=== PATIENT | female | born 1975 | race Caucasian/White ===

== ENCOUNTER 2018-09-21 02:57 | Emergency (ER) | payer MEDICAID ==
[2018-09-21] VITALS (7 sets, daily range): BP systolic 107–126; BP diastolic 60–80
[~2018-09-21] VITALS: Ht 162.6 cm; Wt 65.8 kg
[~2018-09-21 02:57] MED LIST: REMERON30 MG ORAL
--- NOTE | 2018-09-21 02:58 | NUR ---
ED Nurse Note: Patient brought in by ALICIA via better. . Per EMT patient was trying to get back into the place she was staying at but the owners wouldnt let her in and 911 was called. Patient's appearance is disheveled. patient is alert x3. VS HR 100, BP118/80 ,Sp02 95 RA, RR 20. Bed is in lowest position. Call light is within easy reach while in bed. Addendum: 09/21/18 at 0356 by JAZMINE ED Nurse Note: Patient brought in by ALICIA via [facility]. . Per EMT patient was trying to get back into the place she was staying at but the owners wouldnt let her in and 911 was called. Patient's appearance is disheveled. patient is alert x3. VS HR 100, BP118/80 ,Sp02 95 RA, RR 20. Bed is in lowest position. belonging was placed in locker 3.
--- NOTE | 2018-09-21 03:05 | Emergency Room Report ---
History of Present Illness General Chief Complaint: Behavioral Complaint Source: Patient Present Illness HPI This is a 43-year-old female with unknown psychiatric or past medical history. She presents with behavioral complaint. She was staying with a friend last 2 days. Her friend had to go to work and asked her to leave but she refused. She then started acting abnormally. 911 was called. On arrival Per EMS she was laying on the ground flailing about. She is not acting normally. They brought her here for evaluation. Unknown alcohol or drug abuse. Patient is a poor historian. Patient has a bottle of Remeron 30 mg with her. She filled it on September 12, 2018 at the [facility]. She had 30 tablets filled. Now there is only 10 left. It is unknown if she overdose on this. Patient was placed on a 5150 by police. Allergies: Coded Allergies: No Known Allergies (Unverified , 09/21/18) Patient History Past Medical History: see triage record, old chart reviewed Past Surgical History: unable to obtain Family History: unable to obtain Social History: single, unable to obtain Last Menstrual Period: na Now: No Immunizations: other Reviewed Nursing Documentation: PMH: Agreed; PSxH: Agreed Nursing Documentation-PMH History Of Psychiatric Problem: Yes Review of Systems ENT: Denies: sore throat Cardiovascular: Denies: chest pain, palpitations Gastrointestinal/Abdominal: Denies: nausea, vomiting, diarrhea Musculoskeletal: Denies: back problems Skin: Denies: rash Neurological: Denies: JANSEN, seizures All Other Systems: negative except mentioned in HPI Physical Exam Vital Signs Date Time Temp Pulse Resp B/P (MAP) Pulse Ox O2 Delivery O2 Flow Rate FiO2 09/21/18 02:47 98.4 125 24 175/125 (142) 98 Room Air vitals with hyper tension and tachycardia Sp02 EP Interpretation: reviewed, normal General Appearance: alert/responsive, no apparent distress, non-toxic Head: normocephalic, atraumatic Eyes: PERRL, EOMI ENT: oropharynx normal Neck: supple/symm/no masses Respiratory: effort normal, no rhonchi, no wheezing Cardiovascular: no murmur, gallop, rub Gastrointestinal: non-tender, no mass, non-distended, no rebound/guarding, normal bowel sounds Neurologic: oriented x3, sensory intact, motor strength/tone normal Skin: no rash, normal palpation Medical Decision Making Diagnostic Impression: Primary Impression: Acute psychosis Additional Impressions: Methamphetamine abuse Behavioral disorder Hypokalemia ER Course Patient presents with acute psychosis and behavior disorder. Most likely drug- induced. Questionable overdose with Remeron. Vitals been stable and heart rate normal. Potassium is low and been replaced. Will repeat. If normalized, she will be medically clear. She is currently on a 5150. EKG Diagnostic Results Rate: normal Rhythm: NSR ST Segments: no acute changes Rhythm Strip Diag. Results EP Interpretation: yes Rate: 89 Rhythm: NSR, no PVC's, no ectopy Last Vital Signs Date Time Temp Pulse Resp B/P (MAP) Pulse Ox O2 Delivery O2 Flow Rate FiO2 09/21/18 02:47 98.4 125 24 175/125 (142) 98 Room Air Status: improved Disposition: D/C TO LAW ENFORCEMENT IN [facility] Condition: Improved Jason Shaw MD Sep 21, 2018 03:05
[2018-09-21] MEDS ORDERED: Haloperidol 5mg/ml Inj IM ONE (03:15)
[2018-09-21 03:36] LABS: APPEARANCE,URINE SLIGHTLY CLOUDY; BILIRUBIN, URINE 1+ (NEGATIVE); GLUCOSE, URINE (UA) NEGATIVE (NEGATIVE); KETONES,URINE 4+ (NEGATIVE); LEUKOCYTE ESTERASE ,URINE 1+ (NEGATIVE); NITRITE,URINE NEGATIVE (NEGATIVE); PH,URINE 6 (4.5-8.0); PROTEIN,URINE 2+ (NEGATIVE); UROBILINOGEN,URINE 4 MG/DL (0.0-1.0)
[2018-09-21 03:47] LABS: ANION GAP 16 mmol/L (5-15); BLOOD UREA NITROGEN 29 mg/dL (7-18); CALCIUM 9.7 MG/DL (8.5-10.1); CARBON DIOXIDE 21 MMOL/L (21-32); CHLORIDE 104 MMOL/L (98-107); CREATININE 1.3 MG/DL (0.55-1.30); POTASSIUM 2.9 MMOL/L (3.5-5.1); SODIUM 141 MMOL/L (136-145)
--- NOTE | 2018-09-21 03:47 | NUR ---
ED Nurse Note: Pt currently in bed in semi salcido position resting. VSS. appears to be sleeping
[2018-09-21 03:51] LABS: COLOR,URINE YELLOW
[2018-09-21 03:52] LABS: BASOPHILS % (AUTO) 1.3 % (0.0-2.0); HEMATOCRIT 40.2 % (37.0-47.0); HEMOGLOBIN 13.7 G/DL (12.0-16.0); LYMPHOCYTES % (AUTO) 11.1 % (20.0-45.0); MEAN CORPUSCULAR VOLUME 90 FL (80-99); MONOCYTES % (AUTO) 8.6 % (1.0-10.0); PLATELET COUNT 204 K/UL (150-450); RED BLOOD COUNT 4.49 M/UL (4.20-5.40); RED CELL DISTRIBUTION WIDTH 10.4 % (11.6-14.8); WHITE BLOOD COUNT 11.9 K/UL (4.8-10.8)
[2018-09-21 03:58] LABS: ALANINE AMINOTRANSFERASE 42 U/L (12-78); ALBUMIN 4.6 G/DL (3.4-5.0); ALBUMIN/GLOBULIN RATIO 1.1 (1.0-2.7); ALKALINE PHOSPHATASE 79 U/L (46-116); ASPARTATE AMINO TRANSFERASE 73 U/L (15-37)
--- NOTE | 2018-09-21 04:03 | NUR ---
ED Nurse Note: Sitter requested from [facility].
[2018-09-21] MEDS ORDERED: cefTRIAXone 1 GM in NS 55 ML IVPB ONE (04:15)
--- NOTE | 2018-09-21 04:47 | NUR ---
ED Nurse Note: patient seen in bed in semi salcido position, appears to be sleeping. VSS.
--- NOTE | 2018-09-21 05:46 | NUR ---
ED Nurse Note: patient in bed in semi salcido position. appears to be sleeping. VSS.
--- NOTE | 2018-09-21 05:57 | NUR ---
ED Nurse Note: Per ER MD, draw K+, at 0630.
--- NOTE | 2018-09-21 06:47 | NUR ---
ED Nurse Note: Patient awake, about to eat breakfast. VSS. Calm and coorporative at this time.
--- NOTE | 2018-09-21 07:19 | NUR ---
HAND-OFF: Report given to BRENNAN Mason.
--- NOTE | 2018-09-21 07:30 | NUR ---
ED Nurse Note:pt. is sleeping in bed no signs of distress noted, sitter is at bed side
--- NOTE | 2018-09-21 09:00 | NUR ---
ED Nurse Note:blood redraw was sent to labs, pt. is in the room resting, sitter is at bed side
--- NOTE | 2018-09-21 10:00 | NUR ---
ED Nurse Note:sitter is at bed side
--- NOTE | 2018-09-21 11:00 | NUR ---
ED Nurse Note:sitter is at bed side
--- NOTE | 2018-09-21 12:00 | NUR ---
ED Nurse Note:sitter is at bed side, pt. provided with lunch
--- NOTE | 2018-09-21 13:20 | NUR ---
ED Nurse Note:spoke to Gustavo from [facility]
[2018-09-21] MEDS ORDERED: CEPHALEXIN500 MG ORAL (14:24)
--- NOTE | 2018-09-21 14:40 | NUR ---
ED Nurse Note:pt. was picked up by BLS transport, iv line removed, pt. calm and compliant, VSS, all belongings returned to pt. she left ER via BLS transport
== END 2018-09-21 14:48 ==
LOC: EDBD 02:57 → EMR 03:15
DX: F23 Brief psychotic disorder (principal); F15.10 Other stimulant abuse, uncomplicated; F91.9 Conduct disorder, unspecified; E87.6 Hypokalemia
CPT/HCPCS: 36415; 80053; 80307; 80329; 81003; 81025; 84132; 85025; 87086; 93005; 96361; 96365; 96372; 99284; J0696; J1630; J8499